=== PATIENT | male | born 1945 | race Caucasian/White ===

== ENCOUNTER 2017-09-14 02:17 | Inpatient (IN) | payer OTHER ==
[~2017-09-14] VITALS: Ht 172.7 cm; Wt 77.5 kg
[~2017-09-14 02:17] MED LIST: BACTRIM,SEPT1 TABLET PO; KEFLEX500 MG PO; PERCOCET 5/31 TABLET PO; ULTRAM50 MG PO
[2017-09-14 02:42] LABS: HEMATOCRIT 46.1 % (38.0-50.0); HEMOGLOBIN 15.5 G/DL (12.5-16.6); MCHC 33.6 G/DL (30.0-36.0); MCV 98.3 FL (86-99); PLATELET COUNT 167 K/uL (156-360); RBC DIS.WIDTH-CV 12.3 % (11.8-14.6); RBC DIS.WIDTH-SD 44.5 % (39-53); RED BLOOD COUNT 4.69 M/uL (4.00-5.50); WHITE BLOOD COUNT 7.3 K/uL (4.1-10.2)
[2017-09-14 03:04] LABS: TROP-I INTERPRETATION NEGATIVE; TROPONIN-I < 0.01 ng/mL (0.0-0.30)
[2017-09-14 03:11] LABS: CHLORIDE 101 MEQ/L (99-109); GFR ESTIMATE (CALCULATED) > 59 mL/min/ (58.99-99999); GLUCOSE 119 mg/dL (70-99); POTASSIUM 4.6 MEQ/L (3.7-5.4); SODIUM 137 MEQ/L (136-147); UREA NITROGEN (BUN) 19 mg/dL (9-23)
[2017-09-14 04:14] LABS: BASE EXCESS 1.7 mEq/L (-3 to +3); CARBOXY HGB 2.8 % (0-5); COMMENTS - BLOOD GASES C+A+; DEVICE NC; METHEMOGLOBIN 1.2 % (0-1.5); O2 FLOW 5 L/MIN; PCO2 55 mm Hg (35-45); PO2 66 mm Hg (80-100); SITE RR; pH 7.33 (7.35-7.45)
[2017-09-14] MEDS ORDERED: SPIRIVA RESPIMAT4 GM IH (05:20)
[2017-09-14] MEDS ORDERED: SYMBICORT60 INHALAT IH (05:21)
[2017-09-14] MEDS ORDERED: CRESTOR40 MG PO (05:21)
[2017-09-14] MEDS ORDERED: FLOMAX0.4 MG PO (05:21)
[2017-09-14] MEDS ORDERED: LOTREL 5/201 CAPSULE PO (05:22)
[2017-09-14] MEDS ORDERED: ASPIR-TRIN325 M1 PO (05:23)
[2017-09-14 08:28] VITALS: BP 115/70
[2017-09-14] MEDS ORDERED: EAR WAX DROPS15 ML LEFT EAR (08:36)
[2017-09-14 11:34] VITALS: BP 111/62
[2017-09-14 12:54] LABS: APPEARANCE SL.HAZY ((CLEAR)); BILIRUBIN NEGATIVE; BLOOD MODERATE; COLOR YELLOW ((YELLOW)); GLUCOSE (STRIP) 50; KETONES NEGATIVE; LEUKOCYTES NEGATIVE; NITRITE NEGATIVE; PROTEIN (STRIP) NEGATIVE; SPECIFIC GRAVITY 1.016 (1.000-1.030); UROBILINOGEN 0.2 MG/DL (0.2-1.0)
[2017-09-14 13:10] LABS: BACTERIA NONE SEEN /HPF; EPITHELIAL CELLS RARE /HPF; HYALINE CASTS 0-5 /LPF; MUCUS TRACE /LPF; RED BLOOD CELLS 0-5 /HPF (0-5); UCUL ADDED? NO; WHITE BLOOD CELLS 0-5 /HPF (0-5)
[2017-09-14 15:32] VITALS: BP 110/68
[2017-09-14 19:40] VITALS: BP 131/70
[2017-09-15] VITALS (7 sets, daily range): BP systolic 111–129; BP diastolic 67–90
[2017-09-15 06:18] LABS: BASOPHIL (%) 0.1 % (0-1); EOSINOPHIL (%) 0 % (0-5); HEMATOCRIT 41.4 % (38.0-50.0); IMMATURE GRANULOCYTE (%) 0.3 % (0.0-0.7); LYMPHOCYTE (%) 10.6 % (15-42); LYMPHOCYTE COUNT 1.1 K/uL (1.0-2.8); MCH 31.8 PG (29.0-34.0); MCHC 32.4 G/DL (30.0-36.0); MCV 98.3 FL (86-99); MONOCYTE (%) 5.6 % (3-12); MONOCYTE COUNT 0.6 K/uL (0-0.8); NEUTROPHIL (%) 83.4 % (45-76); NEUTROPHIL COUNT 8.4 K/uL (1.8-6.4); PLATELET COUNT 164 K/uL (156-360); RBC DIS.WIDTH-CV 12.4 % (11.8-14.6); RBC DIS.WIDTH-SD 45.1 % (39-53); RED BLOOD COUNT 4.21 M/uL (4.00-5.50); WHITE BLOOD COUNT 10.1 K/uL (4.1-10.2)
[2017-09-15 06:19] LABS: HEMOGLOBIN 13.4 G/DL (12.5-16.6)
[2017-09-15 06:23] LABS: ALBUMIN 3.9 G/DL (3.2-4.8); ALKALINE PHOSPHATASE 37 IU/L (3-129); ALT (GPT) 7 IU/L (3-49); AST (GOT) 15 IU/L (2-34); CHLORIDE 102 MEQ/L (99-109); CREATININE 1.1 MG/DL (0.6-1.3); DIRECT BILIRUBIN 0.2 mg/dL (0.0-0.3); GFR ESTIMATE (CALCULATED) > 59 mL/min/ (58.99-99999); GLUCOSE 136 mg/dL (70-99); POTASSIUM 4.8 MEQ/L (3.7-5.4); SODIUM 137 MEQ/L (136-147); TOTAL BILIRUBIN 0.5 MG/DL (0.0-1.0); TOTAL PROTEIN 6.2 G/DL (6.4-8.3); UREA NITROGEN (BUN) 26 mg/dL (9-23)
[2017-09-16 03:28] VITALS: BP 143/83
[2017-09-16 07:15] VITALS: BP 103/73
[2017-09-16 15:45] VITALS: BP 115/70
[2017-09-17 00:04] VITALS: BP 132/72
[2017-09-17 08:00] VITALS: BP 135/86
[2017-09-17] MEDS ORDERED: AMOX TR-K CLV1 EAC4 PO (12:12)
[2017-09-17] MEDS ORDERED: PREDNISONE5 MG PO (12:14)
[2017-09-17] MEDS ORDERED: DUONEB 2.5-0.5 M3 ML AEROSOL (12:14)
== END 2017-09-17 17:26 | disposition home health service (06) | DRG 190 ==
LOC: EME → EDBD 02:17 → 2EASTP 06:41 → EDOF 06:41 → ENRESERV 06:42 → 2EASTP 08:21
PROVIDERS: Emergency Medicine; Hospitalist
DX: J44.1 Chronic obstructive pulmonary disease with (acute) exacerbation (principal); J96.01 Acute respiratory failure with hypoxia; J20.9 Acute bronchitis, unspecified; J44.0 Chronic obstructive pulmonary disease with (acute) lower respiratory infection; I10 Essential (primary) hypertension; E78.5 Hyperlipidemia, unspecified; I25.10 Atherosclerotic heart disease of native coronary artery without angina pectoris; N40.0 Benign prostatic hyperplasia without lower urinary tract symptoms; F17.210 Nicotine dependence, cigarettes, uncomplicated; I25.2 Old myocardial infarction; Z95.5 Presence of coronary angioplasty implant and graft
CPT/HCPCS: 36600; 71046; 80048; 80053; 81003; 82248; 82803; 84484; 85025; 85027; 87070; 87205; 87502; 93005; 94640; 94640 76; 94644; 94799; 99202; 99281; 99284; J1100; J1650; J1956; J2930; J7030; J7512; J7644

== ENCOUNTER 2018-03-15 19:04 | Inpatient (IN) | payer OTHER ==
[~2018-03-15] VITALS: Ht 172.7 cm; Wt 83.5 kg
[~2018-03-15 19:04] MED LIST changes: +AMOX TR-K CLV1 EAC4 PO; +ASPIR-TRIN325 M1 PO; +CRESTOR40 MG PO; +DUONEB 2.5-0.5 M3 ML AEROSOL; +EAR WAX DROPS15 ML LEFT EAR; +FLOMAX0.4 MG PO; +LOTREL 5/201 CAPSULE PO; +PREDNISONE5 MG PO; +SPIRIVA RESPIMAT4 GM IH; +SYMBICORT60 INHALAT IH
[2018-03-15 19:49] LABS: HEMATOCRIT 42.4 % (38.0-50.0); HEMOGLOBIN 14.2 G/DL (12.5-16.6); MCHC 33.5 G/DL (30.0-36.0); MCV 98.6 FL (86-99); PLATELET COUNT 168 K/uL (156-360); RBC DIS.WIDTH-CV 12.1 % (11.8-14.6)
[2018-03-15 19:59] LABS: ALBUMIN 4.5 g/dL (3.2-4.8); CHLORIDE 99 mEq/L (99-109); POTASSIUM 4.6 mEq/L (3.7-5.4); SODIUM 139 mEq/L (136-147)
[2018-03-15 20:01] LABS: GLUCOSE 106 mg/dL (70-99); TOTAL PROTEIN 7.2 g/dL (6.4-8.3)
[2018-03-15 20:03] LABS: TOTAL BILIRUBIN 1.1 mg/dL (0.0-1.0)
[2018-03-15 20:05] LABS: ALKALINE PHOSPHATASE 47 IU/L (3-129); CREATININE 1.3 mg/dL (0.6-1.3); GFR ESTIMATE (CALCULATED) 58 mL/min/ (58.99-99999)
[2018-03-15 20:06] LABS: UREA NITROGEN (BUN) 15 mg/dL (9-23)
[2018-03-15 20:07] LABS: AST (GOT) 18 IU/L (2-34)
[2018-03-15 20:08] LABS: ALT (GPT) 11 IU/L (3-49)
[2018-03-15 20:11] LABS: TROP-I INTERPRETATION NEGATIVE; TROPONIN-I 0.02 ng/mL (0.0-0.30)
[2018-03-15] MEDS ORDERED: VENTOLIN HFA18 GM IH (22:34)
[2018-03-16 02:03] VITALS: BP 132/75
[2018-03-16 02:34] LABS: APPEARANCE CLEAR ((CLEAR)); BILIRUBIN NEGATIVE; BLOOD MODERATE; COLOR YELLOW ((YELLOW)); GLUCOSE (STRIP) 150; KETONES NEGATIVE; LEUKOCYTES NEGATIVE; NITRITE NEGATIVE; PROTEIN (STRIP) NEGATIVE; SPECIFIC GRAVITY 1.014 (1.000-1.030); UROBILINOGEN 0.2 MG/DL (0.2-1.0)
[2018-03-16 02:48] LABS: BACTERIA NONE SEEN /HPF; EPITHELIAL CELLS RARE /HPF; MUCUS TRACE /LPF; UCUL ADDED? NO; WHITE BLOOD CELLS 0-5 /HPF (0-5)
[2018-03-16 04:52] VITALS: BP 112/65
[2018-03-16 07:21] VITALS: BP 139/79
[2018-03-16 11:50] VITALS: BP 121/72
[2018-03-16 15:45] VITALS: BP 102/69
[2018-03-16 20:00] VITALS: BP 113/68
[2018-03-17 00:33] VITALS: BP 111/70
[2018-03-17 05:26] VITALS: BP 116/72
[2018-03-17 06:03] LABS: CHLORIDE 102 MEQ/L (99-109); GFR ESTIMATE (CALCULATED) > 59 mL/min/ (58.99-99999); GLUCOSE 139 mg/dL (70-99); POTASSIUM 5.4 MEQ/L (3.7-5.4); SODIUM 136 MEQ/L (136-147)
[2018-03-17 06:04] LABS: HEMATOCRIT 36.2 % (38.0-50.0); MCH 32.4 PG (29.0-34.0); MCHC 32.9 G/DL (30.0-36.0); MCV 98.6 FL (86-99); PLATELET COUNT 160 K/uL (156-360); RBC DIS.WIDTH-CV 12.3 % (11.8-14.6); RBC DIS.WIDTH-SD 45.1 % (39-53); RED BLOOD COUNT 3.67 M/uL (4.00-5.50); WHITE BLOOD COUNT 10.7 K/uL (4.1-10.2)
[2018-03-17 06:07] LABS: HEMOGLOBIN 11.9 G/DL (12.5-16.6)
[2018-03-17 06:25] LABS: UREA NITROGEN (BUN) 26 mg/dL (9-23)
[2018-03-17 07:37] VITALS: BP 115/69
[2018-03-17 11:33] VITALS: BP 129/75
[2018-03-17 15:50] VITALS: BP 113/68
[2018-03-17 20:03] VITALS: BP 128/71
[2018-03-18 00:29] VITALS: BP 119/74
[2018-03-18 05:04] VITALS: BP 114/61
[2018-03-18 07:39] VITALS: BP 124/88
[2018-03-18] MEDS ORDERED: PREDNISONE10 MG PO (11:34)
[2018-03-18] MEDS ORDERED: DUONEB 2.5-0.5 M3 ML AEROSOL (11:34)
[2018-03-18] MEDS ORDERED: ZITHROMAX Z-PA250 MG PO (11:36)
[2018-03-18 11:45] VITALS: BP 148/84
== END 2018-03-18 11:36 | disposition home or self-care (01) | DRG 191 ==
LOC: EME 19:04 → EDOF 03-16 00:50 → 4SOUTH 03-16 01:49
PROVIDERS: Emergency Medicine; Hospitalist
DX: J44.1 Chronic obstructive pulmonary disease with (acute) exacerbation (principal); J96.10 Chronic respiratory failure, unspecified whether with hypoxia or hypercapnia; Z99.81 Dependence on supplemental oxygen; I10 Essential (primary) hypertension; E78.5 Hyperlipidemia, unspecified; F17.210 Nicotine dependence, cigarettes, uncomplicated; I25.10 Atherosclerotic heart disease of native coronary artery without angina pectoris; Z95.5 Presence of coronary angioplasty implant and graft; Z79.51 Long term (current) use of inhaled steroids; Z82.49 Family history of ischemic heart disease and other diseases of the circulatory system
CPT/HCPCS: 71045; 80048; 80053; 81003; 83605; 84484; 85027; 87040; 87070; 87205; 93005; 94640; 94799; 99281; 99285; J0696; J1650; J2930; J7030